=== PATIENT | female | born 1955 | race Two or more races ===

== ENCOUNTER 2017-10-23 06:27 | Day surgery (SDC) | payer MEDICAID ==
[~2017-10-23] VITALS: Ht 152.4 cm; Wt 55.3 kg
[2017-10-23] VITALS (8 sets, daily range): BP systolic 141–157; BP diastolic 62–75
[~2017-10-23 06:27] MED LIST: ACETAMINOPHEN325 M1 ORAL; AMLODIPINE BES2.5 MG ORAL; CRANBERRY400 M1 PO; FERROUS SULFAT325 MG ORAL; GLUCAGON EMERGEN1 MG IJ; LANTUS SOL100 UNIT/1 SUBQ; LISINOPRIL20 MG ORAL; LORATADINE10 M3 PO; METFORMIN HCL1000 M1 ORAL; METOPROLOL TART50 M1 ORAL; MULTIVITAMINS1 EAC2 ORAL; SIMVASTATIN20 MG ORAL; ZANTAC150 MG ORAL
[2017-10-23 08:31] LABS: IRON 29 ug/dL (50-175); TOTAL IRON BINDING CAPACITY 394 ug/dL (250-450)
[2017-10-23] MEDS ORDERED: NS 500ML IV ONE (08:57)
--- NOTE | 2017-10-23 08:58 | Pre-Procedure Note/Attestation ---
Pre-Procedure Note/Attestation Complete Prior to Procedure Planned Procedure: not applicable Procedure Narrative: esophagogastroduodenoscopy and colonoscopy Indications for Procedure Pre-Operative Diagnosis: iron def anemia Attestation I attest that I discussed the nature of the procedure; its benefits; risks and complications; and alternatives (and the risks and benefits of such alternatives ), prior to the procedure, with the patient (or the patient's legal hobbies and crafts sales representative). I attest that, if there was a reasonable possibility of needing a blood transfusion, the patient (or the patient's legal hobbies and crafts sales representative) was given the [facility] standardized written summary, pursuant to the Michael Bushong Blood Safety Act ([place] Health and Safety Code # 1645, as amended). I attest that I re-evaluated the patient just prior to the surgery and that there has been no change in the patient's H&P, except as documented below: VITO ADDISON Oct 23, 2017 08:58
[2017-10-23] MEDS ORDERED: Midazolam 2mg/2ml Inj ONE (09:00)
[2017-10-23] MEDS ORDERED: Propofol 200mg/20ml IV ONE (09:00)
--- NOTE | 2017-10-23 09:00 | Short Stay Surgery H&P ---
History of Present Illness History of Present Illness Chief Complaint anemia HPI Tricia Small is a 62 year old female who was admitted on for Gerd/Colon Screening Patient History Allergies: Coded Allergies: AMOXICILLIN (Verified Allergy, Mild, 09/20/17) PENICILLINS (Verified Allergy, Unknown, 10/23/17) PAST MEDICAL HISTORY: (1) DM (diabetes mellitus) (2) HTN (hypertension) Past Surgeries: Social History: Medication History Scheduled Amlodipine Besylate* (Amlodipine Besylate*), 2.5 MG ORAL DAILY, (Reported) Cranberry Fruit (Cranberry), 400 MG PO BID, (Reported) Ferrous Sulfate* (Ferrous Sulfate*), 325 MG ORAL TWICE A DAY, (Reported) Glucagon,Human Recombinant (Glucagon Emergency Kit), 1 MG IJ PRN, (Reported) Insulin Glargine (Lantus), 58 SUBQ BEDTIME, (Reported) Lisinopril (Lisinopril*), 20 MG ORAL QHS, (Reported) Loratadine (Loratadine), 10 MG PO DAILY, (Reported) Metformin Hcl* (Metformin Hcl*), 1,000 MG ORAL BID, (Reported) Metoprolol Tartrate* (Metoprolol Tartrate*), 50 MG ORAL EVERY 12 HOURS, ( Reported) Multivitamins* (Multivitamins*), 1 TAB ORAL DAILY, (Reported) Ranitidine Hcl* (Zantac*), 150 MG ORAL TWICE A DAY, (Reported) Simvastatin (Zocor), 20 MG ORAL BEDTIME, (Reported) Scheduled PRN Acetaminophen* (Acetaminophen 325MG Tablet*), 650 MG ORAL Q6H PRN for Pain Scale (6-10), (Reported) Review of Systems Cardiovascular: Reports: no symptoms Respiratory: Reports: no symptoms Skeletal: Reports: no symptoms Gastrointestinal: Reports: no symptoms Genitourinary: Reports: no symptoms Neurologic: Reports: no symptoms Endocrine: Reports: no symptoms Hematologic: Reports: no symptoms, anemia Physical Exam Vital Signs Last Vital Signs Date Time Temp Pulse Resp B/P (MAP) Pulse Ox O2 Delivery O2 Flow Rate FiO2 10/23/17 07:28 97.8 84 20 156/75 98 Room Air Labs Laboratory Tests Test 10/23/17 07:50 Iron Level 29 ug/dL (50-175) L Total Iron Binding Capacity 394 ug/dL (250-450) Percent Iron Saturation 7 % (15-50) L Unsaturated Iron Binding 365 ug/dL (112-346) H Skin: normal HENT: normal Heart: normal Lungs: normal Abdomen: normal Extremities: normal Plan Plan of Care esophagogastroduodenoscopy and colonoscopy Final Diagnosis: Attestation Are the patient's medical conditions optimized for surgery? Attestation Response: yes VITO ADDISON Oct 23, 2017 09:00
--- NOTE | 2017-10-23 09:22 | Anethesia Preoperative Eval ---
Anesthesia Pre-op PMH/ROS General Date of Evaluation: Oct 23, 2017 Time of Evaluation: 08:50 Anesthesiologist: Félix ASA Score: ASA 3 Mallampati Score Class I : Soft palate, uvula, fauces, pillars visible Class II: Soft palate, uvula, fauces visible Class III: Soft palate, base of uvula visible Class IV: Only hard plate visible Mallampati Classification: Class III Surgeon: Roverto Diagnosis: GERD/ Colon screening Surgical Procedure: EGD/Colon Anesthesia History: none Family History: no anesthesia problems Allergies: Coded Allergies: AMOXICILLIN (Verified Allergy, Mild, 09/20/17) PENICILLINS (Verified Allergy, Unknown, 10/23/17) Medications: see eMAR Past Medical History Cardiovascular: Reports: HTN Pulmonary: Denies: asthma, COPD, [place], other Gastrointestinal/Genitourinary: Reports: GERD Neurologic/Psychiatric: Reports: CVA Endocrine: Reports: DM HEENT: Denies: cataract (L), cataract (R), glaucoma, [place] (L), [place] (R), other Hematology/Immune: Reports: anemia Musculoskeletal/Integumentary: Reports: other - muscle weakness Anesthesia Pre-op Phys. Exam Physician Exam Last Vital Signs Date Time Temp Pulse Resp B/P (MAP) Pulse Ox O2 Delivery O2 Flow Rate FiO2 10/23/17 07:28 97.8 84 20 156/75 98 Room Air Constitutional: NAD Neurologic: CN 2-12 intact Cardiovascular: RRR Respiratory: CTA Gastrointestinal: S/NT/ND Airway Exam Mallampati Score: Class III MO: full ROM: full Teeth: intact Dentures: no upper, no lower Anesthesia Pre-op A/P Labs Chemistry Test 10/23/17 07:50 Iron Level 29 ug/dL (50-175) L Total Iron Binding Capacity 394 ug/dL (250-450) Percent Iron Saturation 7 % (15-50) L Unsaturated Iron Binding 365 ug/dL (112-346) H Accucheck BS = 175 at 0745 am Studies Pre-op Studies: EKG - NSR 81 BPM Risk Assessment & Plan Assessment: Unable to answer any questions. Consent and history obtained on phone from patients sister Susanna. Plan: MAC Status Change Before Surgery: No Pre-Antibiotics Given Within 1 Hr of Incision: No Patricia Heard CRNA Oct 23, 2017 09:22
--- NOTE | 2017-10-23 09:23 | 48 Hour Post Anesthesia Eval ---
Post Anesthesia Evaluation Procedure: EGD/Colon Date of Evaluation: Oct 23, 2017 Time of Evaluation: 10:35 Blood Pressure Systolic: 145 0: 64 Pulse Rate: 75 Respiratory Rate: 20 Temperature (Fahrenheit): 97.9 O2 Sat by Pulse Oximetry: 99 Airway: patent Nausea: No Vomiting: No Pain Intensity: 0 Hydration Status: adequate Cardiopulmonary Status: WNL Mental Status/LOC: patient returned to baseline Follow-up care needed: patient intructions given Patricia Heard CRNA Oct 23, 2017 09:23
--- NOTE | 2017-10-23 09:23 | Immediate Post-Op Evaluation ---
Immediate Post-Op Evalulation Immediate Post-Op Evalulation Procedure: EGD/Colon Date of Evaluation: Oct 23, 2017 Time of Evaluation: 09:42 IV Fluids: NSS Blood Products: 0 Estimated Blood Loss: 0 Urinary Output: 0 Blood Pressure Systolic: 153 Blood Pressure Diastolic: 64 Pulse Rate: 74 Respiratory Rate: 20 O2 Sat by Pulse Oximetry: 100 Temperature (Fahrenheit): 97.9 Pain Score (1-10): 0 Nausea: No Vomiting: No Complications None Patient Status: awake, reacts, patent Hydration Status: adequate Given Within 1 Hr of Incision: Patricia Weston CRNA Oct 23, 2017 09:23
--- NOTE | 2017-10-23 09:29 | Endoscopy Procedure Note ---
Endoscopy Procedure Note Indication for Procedure: anrmia Operative Findings/Diagnosis: rectosigmoid mass Specimen: yes Pt Tolerated Procedure Well: Yes Estimated Blood Loss: none Anesthesiologist: kristian Anesthesia: MAC Implant(s) used?: No 50 yrs or older w/o bx or poly: No 10yrs. F/U not recommended: Yes If not recommended, why?: Above average risk 10 yrs. F/U needed: Yes 18 years or older w/prev. colo: No VITO ADDISON Oct 23, 2017 09:29
--- NOTE | 2017-10-23 20:15 | Procedure Note ---
DATE OF PROCEDURE: 10/23/2017 SURGEON: Mikhail Layne M.D. PROCEDURE: Upper endoscopy with biopsy and colonoscopy with biopsy. ANESTHESIA: Per Félix GRIFFITH. INSTRUMENT: Olympus adult flexible upper endoscope and colonoscope. INDICATION: Anemia, iron deficiency. REASON FOR PROCEDURE: The procedure, risks, benefits, and possible consequences, including hemorrhage, aspiration, perforation and infection, and alternative treatments, were explained to the patient/legal guardian by Dr. Mikhail Layne and the patient/legal guardian understood and accepted these risks. DESCRIPTION FOR PROCEDURE: After informed consent was obtained and the patient was adequately sedated, Olympus upper endoscope was advanced from mouth into the second portion of the duodenum and retroflexion was performed in the stomach. The patient had diffuse gastritis. Random biopsy of the antrum was obtained to rule out H. pylori infection. At this time, the upper endoscope was retrieved and the patient was turned over for colonoscopy. First, a rectal exam was performed, which was normal. Then, the scope was advanced from the rectum into the cecum. Quality of prep was poor, especially in the cecum. We could not examine the cecum nor the ascending colon. The rest of the colonic examination also 50% was covered with the stool. The patient had a mass starting at about 9 cm in the rectum extending to about 15 cm. 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 After the biopsy, we tattooed the most distal portion and part of this mass. Retroflexion of rectum showed evidence of few small nonbleeding internal hemorrhoids. The patient had some scattered diverticulosis in the sigmoid colon. SUMMARY OF FINDINGS: 1. Gastritis, status post biopsy. 2. Rectosigmoid mass, status post biopsy. See above for details. 3. Very poor colonic prep. 4. Scattered diverticulosis. 5. Internal hemorrhoids. RECOMMENDATIONS: 1. Follow up biopsy results and treat accordingly. 2. The patient is a bartholomew CT for staging CEA level for today. 3. The patient to follow with Dr. Evans Langley, her primary care physician, for followup. I want to thank, Dr. Evans Langley, for this kind referral. Mikhaildinorah Layne M.D. DR: WHITNEY JOB#: [id number] CC: Evans Langley M.D.; Fax#: [phone]
--- NOTE | 2017-10-26 00:27 | Cardiology Report ---
APPROVED REPORT EKG Measurement Heart [id number] [id number] Normal sinus rhythm Nonspecific ST abnormality Abnormal ECG
== END 2017-10-23 11:30 | disposition home or self-care (01) ==
LOC: GAS 06:27
DX: Z12.11 Encounter for screening for malignant neoplasm of colon (principal); C19 Malignant neoplasm of rectosigmoid junction; K29.50 Unspecified chronic gastritis without bleeding; K57.90 Diverticulosis of intestine, part unspecified, without perforation or abscess without bleeding; E11.9 Type 2 diabetes mellitus without complications; I10 Essential (primary) hypertension; Z88.0 Allergy status to penicillin; Z79.84 Long term (current) use of oral hypoglycemic drugs; Z86.73 Personal history of transient ischemic attack (TIA), and cerebral infarction without residual deficits; D50.9 Iron deficiency anemia, unspecified; K64.8 Other hemorrhoids
CPT/HCPCS: 36415; 43239; 45380; 82378; 82962; 83540; 83550; 93005; J2250; J2704; J7040; Z7512; 94003; 94150